=== PATIENT | male | born 1990 | race African-American/Black ===

== ENCOUNTER 2019-05-06 00:55 | Emergency (ER) | payer MEDICAID ==
[~2019-05-06] VITALS: Ht 185.4 cm; Wt 83.5 kg
[2019-05-06 01:07] VITALS: BP 123/88
--- NOTE | 2019-05-06 01:09 | NUR ---
pt unable to provide urine sample, provided with specimen cup , to wait in lobby.
--- NOTE | 2019-05-06 01:09 | NUR ---
Clarissa hill in [facility] - 05/06/19 at 0111 by MAKAYLA urine sample provided, pt jorge reed.
--- NOTE | 2019-05-06 03:30 | NUR ---
PATIENT CALLED TO PUT ON A BED , NO RESPONSE
--- NOTE | 2019-05-06 03:35 | NUR ---
CALLED FOR THE SECOND TIME , NO RESPONSE
--- NOTE | 2019-05-06 03:40 | NUR ---
CALLED FOR THE THIRD TIME NO RESONSE
== END 2019-05-06 03:30 | disposition left against medical advice (07) ==
LOC: MED 00:55
DX: R10.9 Unspecified abdominal pain (principal); Z53.21 Procedure and treatment not carried out due to patient leaving prior to being seen by health care provider

== ENCOUNTER 2019-06-19 00:49 | Emergency (ER) | payer MEDICAID ==
[~2019-06-19] VITALS: Ht 185.4 cm; Wt 80.7 kg
[2019-06-19 00:59] VITALS: BP 122/44
--- NOTE | 2019-06-19 02:00 | NUR ---
PT CALLED FROM LOBBY. NO RESPONSE.
--- NOTE | 2019-06-19 02:05 | NUR ---
PT CALLED FROM LOBBY. NO RESPONSE.
--- NOTE | 2019-06-19 02:09 | NUR ---
PT CALLED FROM LOBBY. NO RESPONSE. PT LWBS. DR. VERDUGO MADE AWARE.
== END 2019-06-19 02:11 | disposition left against medical advice (07) ==
LOC: MED 00:49
DX: R10.30 Lower abdominal pain, unspecified (principal); R30.9 Painful micturition, unspecified; Z53.21 Procedure and treatment not carried out due to patient leaving prior to being seen by health care provider